=== PATIENT | female | born 1995 | race Caucasian/White ===

== ENCOUNTER 2018-09-02 15:10 | Emergency (ER) | payer BC ==
--- NOTE | 2018-09-02 15:47 | ED ---
GI/ HPI - HPI Summary HPI Summary: This patient is a 23 year old female presenting to [facility] with a chief complaint of vaginal bleeding. The patient states she had her last period 2 weeks ago, and then experienced bleeding again that did not feel like her periods. She had hemorrhoids a few weeks prior and wants to make sure nothing else was wrong. She says she sometimes gets irregular periods due to her control. - History of Current Complaint Chief Complaint: EDVaginalBleeding Time Seen by Provider: 09/02/18 15:37 Stated Complaint: UNEXPLAINED VAGINAL BLEEDING PER PT Hx Obtained From: Patient Onset/Duration: Started Hours Ago Pain Intensity: 0 Additional Signs & Symptoms: Positive: Vaginal Bleeding PMH/Surg Hx/FS Hx/Imm Hx Endocrine/Hematology History: Denies: Hx Anemia Cardiovascular History: Denies: Hx Coronary Artery Disease - Immunization History Immunizations Up to Date: Yes Infectious Disease History: No Infectious Disease History: Denies: Traveled Outside the [place] in Last 30 Days - Family History Known Family History: Negative: Cardiac Disease - Social History Alcohol Use: Occasionally Substance Use Type: Reports: None Smoking Status (MU): Never Smoked Tobacco Review of Systems Negative: Fever Positive: other - Vaginal bleeding All Other Systems Reviewed And Are Negative: Yes Physical Exam - Summary Physical Exam Summary: Appearance: Well appearing, no pain distress Skin: warm, dry, reflects adequate perfusion Head/face: normal Eyes: EOMI, WES ENT: normal Neck: supple, non-tender Respiratory: CTA, breath sounds present Cardiovascular: RRR, pulses symmetrical Abdomen: non-tender, soft Musculoskeletal: normal, strength/ROM intact Neuro: normal, sensory motor intact, A&Ox3 Triage Information Reviewed: Yes Vital Signs On Initial Exam: Initial Vitals Temp Pulse Resp BP Pulse Ox 98.5 F 86 18 143/87 98 09/02/18 15:11 09/02/18 15:11 09/02/18 15:11 09/02/18 15:11 09/02/18 15:11 Vital Signs Reviewed: Yes Diagnostics - Vital Signs Vital Signs Temp Pulse Resp BP Pulse Ox 09/02/18 15:11 98.5 F 86 18 143/87 98 - Laboratory Result Diagrams: 09/02/18 16:06 09/02/18 16:06 Lab Statement: Any lab studies that have been ordered have been reviewed, and results considered in the medical decision making process. - Ultrasound No standard instances Ultrasound Interpretation Completed By: Radiologist Summary of Ultrasound Findings: Normal and age-appropriate pelvic ultrasound. ED Provider has reviewed this report. GIGU Course/Dx - Course Course Of Treatment: This patient is a 23 year old female presenting to [facility] with a chief complaint of vaginal bleeding. Labs and transvaginal U/S were unremarkable. She will follow up with her [facility]. A plan for discharge was discussed with the patient and she was agreeable with this plan. - Diagnoses Provider Diagnoses: Vaginal bleeding Discharge - Sign-Out/Discharge Documenting (check all that apply): Patient Departure - Discharge Patient Received Moderate/Deep Sedation with Procedure: No - Discharge Plan Condition: Stable Disposition: HOME Patient Education Materials: Menorrhagia (ED) Referrals: [facility] [Provider Group] - 3 Days Additional Instructions: Follow up with [facility]. - Attestation Statements Document Initiated by Scribe: Yes Documenting Scribe: Leno Arguello Provider For Whom Scribe is Documenting (Include Credential): Varun Dey MD Scribe Attestation: Leno Duarte scribed for Varun Dey MD on 09/02/18 at 1835. Status of Scribe Document: Ready
[2018-09-02 16:15] LABS: ABS Lymphocytes 1.8 10^3/ul (1.0-4.8); ABS Monocytes 0.6 10^3/ul (0-0.8); ABS Neutrophils 4.7 10^3/ul (1.5-7.7); Eosinophil % 0.5 %; Hematocrit 42 % (35-47); Hemoglobin 14.4 g/dL (12.0-16.0); Mean Corpuscular HGB Conc 35 g/dL (31-36); Mean Corpuscular Hemoglobin 31 pg (27-31); Mean Corpuscular Volume 89 fL (80-97); Mean Platelet Volume 8.1 fL (7.4-10.4); Platelet Count 267 10^3/uL (150-450); Red Blood Count 4.68 10^6 /uL (3.70-4.87); Red Cell Distribution Width 13 % (10-15); White Blood Count 7.2 10^3/uL (3.5-10.8)
[2018-09-02 16:32] LABS: Activated Partial Thrombo Time 37.5 seconds (26.0-38.0); INR 1.05 (0.82-1.09)
[2018-09-02 16:34] LABS: ALT 16 U/L (7-52); AST 25 U/L (13-39); Albumin 4.9 g/dL (3.2-5.2); Albumin/Globulin Ratio 1.8 (1-3); Alkaline Phosphatase 63 U/L (34-104); Anion Gap 6 mmol/L (2-11); BUN/Creatinine Ratio 14.1 (8-20); Blood Urea Nitrogen 13 mg/dL (6-24); CO2 Carbon Dioxide 26 mmol/L (22-32); Calcium 10.2 mg/dL (8.6-10.3); Chloride 103 mmol/L (101-111); EGFR African American 92.4 (>60); EGFR Non-African American 76.3 (>60); Globulin 2.7 g/dL (2-4); Glucose 95 mg/dL (70-100); Sodium 135 mmol/L (135-145); Total Protein 7.6 g/dL (6.4-8.9)
[2018-09-02 16:40] LABS: HCG Pregnancy < 0.60 mIU/mL
[2018-09-02 18:49] VITALS: BP 125/79
== END 2018-09-02 18:45 | disposition home or self-care (01) ==
LOC: ED 15:10
DX: N93.9 Abnormal uterine and vaginal bleeding, unspecified (principal)
CPT/HCPCS: 36415; 76856; 80053; 84702; 85025; 85610; 85730; 99282